=== PATIENT | male | born 1960 | race Caucasian/White ===

== ENCOUNTER 2020-10-09 23:27 | Emergency (ER) | payer MEDICARE, MEDICAID ==
[~2020-10-09] VITALS: Ht 172.7 cm; Wt 94.5 kg
[2020-10-10] MEDS ORDERED: amox tr/potassium clavulanate 875/125mg TAB PO ONE (00:10)
[2020-10-10] MEDS ORDERED: sulfamethoxazole/trimethoprim DS (800/160mg) tablet PO ONE (00:10)
[2020-10-10] MEDS ORDERED: SULF1TAB49 PO (00:13)
[2020-10-10] MEDS ORDERED: AMOX-117 PO (00:13)
[2020-10-10] MEDS ORDERED: Cipro HC otic suspension 10ML bottle RIGHT EAR STA (00:20)
[2020-10-10 00:53] VITALS: BP 127/73
== END 2020-10-10 00:45 | disposition home or self-care (01) ==
LOC: ER 23:28
DX: H60.11 Cellulitis of right external ear (principal); F17.200 Nicotine dependence, unspecified, uncomplicated; Z72.89 Other problems related to lifestyle; Z88.8 Allergy status to other drugs, medicaments and biological substances; Z79.899 Other long term (current) drug therapy
CPT/HCPCS: 99284